=== PATIENT | male | born 1995 | race Caucasian/White ===

== ENCOUNTER 2020-11-24 16:09 | Emergency (ER) | payer OTHER ==
[2020-11-24] MEDS ORDERED: IBU800 MG PO (17:32)
== END 2020-11-24 17:42 | disposition home or self-care (01) ==
LOC: ER1 16:09
DX: S92.425A Nondisplaced fracture of distal phalanx of left great toe, initial encounter for closed fracture (principal); W22.8XXA Striking against or struck by other objects, initial encounter; Y92.89 Other specified places as the place of occurrence of the external cause; Y99.0 Civilian activity done for income or pay; Z90.49 Acquired absence of other specified parts of digestive tract
CPT/HCPCS: 73630; 99283

== ENCOUNTER → 2021-09-26 22:29 | Emergency (ER) | payer SELFPAY ==
[~2021-09-26 22:29] MED LIST: IBU800 MG PO
== END | disposition left against medical advice (07) ==
LOC: ER1 22:29
DX: Z53.21 Procedure and treatment not carried out due to patient leaving prior to being seen by health care provider (principal)